=== PATIENT | female | born 1985 | race Asian ===

== ENCOUNTER 2021-01-20 20:55 | Emergency (ER) | payer OTHER ==
[~2021-01-20] VITALS: Ht 160 cm; Wt 65.2 kg
[2021-01-20 22:48] LABS: BASO # 0.1 10^3/uL (0.0-0.2); BASO % 0.8 % (0.0-1.0); EOS # 0.2 10^3/uL (0.0-0.5); EOS % 2.7 % (0.0-3.0); HEMATOCRIT 39.1 % (36.0-47.0); HEMOGLOBIN 12.7 g/dl (12.0-15.5); LYMPH # 2.4 10^3/uL (1.5-5.0); LYMPH % 33.4 % (24.0-44.0); MEAN CORPUSCULAR HGB CONC 32.5 g/dl (32.0-36.5); MEAN CORPUSCULAR VOLUME 86.1 fl (80.0-96.0); MONO # 0.6 10^3/uL (0.0-0.8); MONO % 7.9 % (2.0-8.0); NEUTROPHILS % 55.1 % (36.0-66.0); PLATELET COUNT, AUTOMATED 298 10^3/uL (150-450); RED BLOOD COUNT 4.54 10^6/uL (4.00-5.40); WHITE BLOOD COUNT 7.3 10^3/uL (4.0-10.0)
[2021-01-20 23:08] LABS: ERYTHROCYTE SEDIMENTATION RATE 13 mm/hr (0-20)
[2021-01-20 23:27] LABS: BLOOD UREA NITROGEN 14 MG/DL (7-18); CALCIUM LEVEL 8.5 MG/DL (8.5-10.1); CARBON DIOXIDE LEVEL 27 MEQ/L (21-32); CHLORIDE LEVEL 107 MEQ/L (98-107); CREATININE FOR GFR 0.69 MG/DL (0.55-1.30); GLOMERULAR FILTRATION RATE > 60.0 (>60); GLUCOSE, FASTING 104 MG/DL (70-100); POTASSIUM SERUM 4.3 MEQ/L (3.5-5.1); RHEUMATOID FACTOR QUANT < 10.0 IU/ML (<15.0); SODIUM LEVEL 137 MEQ/L (136-145)
[2021-01-21] VITALS: BP 118/65
[2021-01-23 23:08] LABS: ANTI DOUBLE STRAND-DNA AB <1 IU/mL (0-9); ANTINUCLEAR ANTIBODIES DIRECT Positive (Negative); CYCLIC CITRULLINATED PEPTIDE 7 units (0-19); Lyme Disease IgG/IgM Antibodie <0.91 ISR (0.00-0.90); Lyme Disease IgM Ab Quantitati <0.80 index (0.00-0.79); RNP ANTIBODIES <0.2 AI (0.0-0.9); SJOGREN'S ANTI SS-A 2.8 AI (0.0-0.9); SJOGREN'S ANTI SS-B <0.2 AI (0.0-0.9); SMITH ANTIBODIES <0.2 AI (0.0-0.9)
== END 2021-01-21 00:01 | disposition home or self-care (01) ==
LOC: M ED 20:55
DX: M25.50 Pain in unspecified joint (principal)

== ENCOUNTER → 2021-09-07 | Outpatient (CLI) | payer OTHER ==
[~2021-09-07] VITALS: Ht 162.6 cm; Wt 77.1 kg
[~2021-09-07] MED LIST: HOME MED LIST COMPLETE! XX SCH; PREN1CHW6 PO
[2021-09-07 00:21] VITALS: BP 125/72
== END ==
LOC: M LDO 00:02
PROVIDERS: ATTEND Obstetrics & Gynecology
DX: O36.8130 Decreased fetal movements, third trimester, not applicable or unspecified (principal); Z3A.35 35 weeks gestation of pregnancy
CPT/HCPCS: 59025; 76815; G0463

== ENCOUNTER 2021-09-13 01:20 | Inpatient (IN) | payer OTHER ==
[2021-09-13] VITALS (51 sets, daily range): BP systolic 95–143; BP diastolic 52–94
[~2021-09-13] VITALS: Ht 162.6 cm; Wt 78.2 kg
[~2021-09-13 01:20] MED LIST changes: -HOME MED LIST COMPLETE! XX SCH
[2021-09-13] MEDS ORDERED: LACTATED RINGER'S 1000 ML IV STA (02:12)
[2021-09-13] MEDS ORDERED: PENICILLIN G POTASSIUM IV 5 MU in D5W MINI-BAG PLUS 100 ML IV STA (02:12)
[2021-09-13] MEDS ORDERED: OXYTOCIN INJ 10 UNITS/ML VIAL (J2590) IM PRN (02:15)
[2021-09-13] MEDS ORDERED: TRANEXAMIC ACID INJection 1,000 MG in NS 100 ML IV PRN (02:15)
[2021-09-13] MEDS ORDERED: OXYTOCIN DRIP 30 UNITS in IV 1 EA IV PRN ×6 (02:15)
[2021-09-13] MEDS ORDERED: METHYLERGONOVINE MALEATE 0.2 MG/ML VIAL (J2210) IM PRN (02:15)
[2021-09-13] MEDS ORDERED: CARBOPROST TROMETHAMINE 250 MCG/ML AMP IM PRN (02:15)
[2021-09-13] MEDS ORDERED: LR 1,000 ML IV SCH (02:15)
[2021-09-13] MEDS ORDERED: OXYTOCIN INJ 10 UNITS/ML VIAL (J2590) IV PRN (02:15)
[2021-09-13] MEDS ORDERED: OXYTOCIN DRIP 30 UNITS in IV 1 EA IV SCH (02:15)
[2021-09-13] MEDS ORDERED: LIDOCAINE 1% MDV 20ML VIAL INFIL PRN (02:15)
[2021-09-13 02:51] LABS: HEMATOCRIT 32.4 % (36.0-47.0); HEMOGLOBIN 10.6 g/dl (12.0-15.5); MEAN CORPUSCULAR HEMOGLOBIN 28.6 pg (27.0-33.0); MEAN CORPUSCULAR HGB CONC 32.7 g/dl (32.0-36.5); MEAN CORPUSCULAR VOLUME 87.6 fl (80.0-96.0); PLATELET COUNT, AUTOMATED 239 10^3/uL (150-450); WHITE BLOOD COUNT 6.9 10^3/uL (4.0-10.0)
[2021-09-13] MEDS: BETAMETHASONE SOLUSPAN 6MG/ML 5ML VIAL (J0702 PER 3MG) IM SCH (02:51)
[2021-09-13] MEDS: LR 1,000 ML IV SCH ×4 (02:52→23:31)
[2021-09-13] MEDS ORDERED: ONDANSETRON 4MG/2ML VIAL IV PRN (04:24)
[2021-09-13] MEDS ORDERED: EPIDURAL COMMENT XX SCH (04:24)
[2021-09-13] MEDS ORDERED: EPIDURAL/PCA KEYS XX PRN (04:24)
[2021-09-13] MEDS ORDERED: diphenhydrAMINE 50MG/ML VIAL (J1200) IV PRN (04:24)
[2021-09-13] MEDS ORDERED: NALOXONE INJ 0.4MG/1ML VIAL (J2310 PER 1MG) IV PRN (04:24)
[2021-09-13] MEDS ORDERED: ePHEDrine SULFATE 25 MG/5 ML(5MG/ML) SYRINGE IV PRN (04:24)
[2021-09-13] MEDS ORDERED: REFRIGERATOR IV KEYS XX PRN (04:24)
[2021-09-13] MEDS ORDERED: LACTATED RINGER'S 1000 ML IV PRN (04:24)
[2021-09-13] MEDS ORDERED: FENTANYL 2MCG/ML ROPIVACAINE 0.2% IN 0.9% NACL 100ML IVBAG As Ordered ONE (04:26)
[2021-09-13 07:03] LABS: ALT/SGPT 19 U/L (12-78); BILIRUBIN,TOTAL 0.6 MG/DL (0.2-1.0); CREATININE FOR GFR 0.54 MG/DL (0.55-1.30); GLOMERULAR FILTRATION RATE > 60.0 (>60); LDH LACTATE DEHYDROGENASE 181 U/L (84-246); URIC ACID 5.5 MG/DL (2.6-6.0)
[2021-09-13] MEDS: FENTANYL/ROPIVACAINE/NACL BAG 100 ML EPIDURAL SCH ×3 (07:12→23:31)
[2021-09-13] MEDS: PENICILLIN G POTASSIUM IV 2.5 MU in IV 1 EA IV SCH ×2 (07:16→12:27)
[2021-09-14] VITALS (15 sets, daily range): BP systolic 95–143; BP diastolic 53–104
[2021-09-14] MEDS: BETAMETHASONE SOLUSPAN 6MG/ML 5ML VIAL (J0702 PER 3MG) IM SCH (02:30)
[2021-09-14 02:58] LABS: CORD GAS ABE V -4.5; CORD GAS HCO3 V 21.3 MEQ/L; CORD GAS O2 SAT V 70.6 %; CORD GAS PCO2 V 41.8 mmHg; CORD GAS PH V 7.325 UNITS; CORD GAS PO2 V 30.6 mmHg; CORD GAS SBC V 20.2 MEQ/L; CORD GAS TCO2 V 22.6 MEQ/L
[2021-09-14 02:59] LABS: CORD GAS ABE A -6.8; CORD GAS HCO3 A 21.7 MEQ/L; CORD GAS O2 SAT A 56.1 %; CORD GAS PCO2 A 55.1 mmHg; CORD GAS PH A 7.214 UNITS; CORD GAS SBC A 18.1 MEQ/L; CORD GAS TCO2 A 23.4 MEQ/L
[2021-09-14] MEDS ORDERED: RHOGAM 300 MCG (1500 IU) INJ (J2790) IM SCH (03:10)
[2021-09-14] MEDS ORDERED: DIBUCAINE 1% OINTMENT 30GM TOP PRN (03:10)
[2021-09-14] MEDS ORDERED: DOCUSATE SODIUM 100MG CAPSULE PO PRN (03:10)
[2021-09-14] MEDS ORDERED: METHYLERGONOVINE MALEATE 0.2 MG TAB PO PRN (03:10)
[2021-09-14] MEDS ORDERED: PROMETHAZINE 25 MG TAB PO PRN (03:10)
[2021-09-14] MEDS ORDERED: LR 1,000 ML IV SCH (03:10)
[2021-09-14] MEDS ORDERED: OXYTOCIN DRIP 30 UNITS in IV 1 EA IV SCH (03:10)
[2021-09-14] MEDS ORDERED: ONDANSETRON 4MG/2ML VIAL IV PRN (03:10)
[2021-09-14] MEDS ORDERED: MEASLES,MUMPS,RUBELLA VACCINE INJ (MMR-II) (90707) SC SCH (03:10)
[2021-09-14] MEDS: IBUPROFEN 800 MG TAB PO SCH ×3 (03:47→19:30)
[2021-09-14] MEDS: ACETAMINOPHEN 500 MG TAB PO SCH ×4 (03:48→21:05)
[2021-09-14] MEDS: PRENATAL VITAMINS CHEWABLE TABLET PO SCH (08:35)
[2021-09-14] MEDS ORDERED: PRENATAL VITAMINS CHEWABLE TABLET PO SCH (09:00)
[2021-09-15] MEDS: ACETAMINOPHEN 500 MG TAB PO SCH ×4 (03:27→21:10)
[2021-09-15] MEDS: IBUPROFEN 800 MG TAB PO SCH ×3 (03:28→19:29)
[2021-09-15 06:00] VITALS: BP 113/56
[2021-09-15] MEDS: PRENATAL VITAMINS CHEWABLE TABLET PO SCH (09:49)
[2021-09-15 09:52] LABS: HEMOGLOBIN 9.9 g/dl (12.0-15.5); MEAN CORPUSCULAR HEMOGLOBIN 28.9 pg (27.0-33.0); MEAN CORPUSCULAR VOLUME 87.5 fl (80.0-96.0); PLATELET COUNT, AUTOMATED 242 10^3/uL (150-450); RED BLOOD COUNT 3.43 10^6/uL (4.00-5.40); WHITE BLOOD COUNT 9.1 10^3/uL (4.0-10.0)
[2021-09-15 18:00] VITALS: BP 112/71
[2021-09-16] MEDS: ACETAMINOPHEN 500 MG TAB PO SCH ×2 (03:32→08:11)
[2021-09-16] MEDS: IBUPROFEN 800 MG TAB PO SCH (03:32)
[2021-09-16 06:00] VITALS: BP 122/62
[2021-09-16] MEDS: PRENATAL VITAMINS CHEWABLE TABLET PO SCH (08:10)
== END 2021-09-16 10:00 | disposition home or self-care (01) | DRG 805 ==
LOC: M LDO 01:20 → M LDI 01:47 → M OBS 09-14 06:54
PROVIDERS: ADMIT Obstetrics & Gynecology; ATTEND Obstetrics & Gynecology
PROC: 10E0XZZ Delivery of Products of Conception, External Approach (ICD-10-PCS; principal; 2021-09-14)
PROC: 0HQ9XZZ Repair Perineum Skin, External Approach (ICD-10-PCS; 2021-09-14)
DX: O42.02 Full-term premature rupture of membranes, onset of labor within 24 hours of rupture (principal); Z37.0 Single live birth; O60.14X0 Preterm labor third trimester with preterm delivery third trimester, not applicable or unspecified; K83.1 Obstruction of bile duct; O26.62 Liver and biliary tract disorders in childbirth; Z3A.36 36 weeks gestation of pregnancy; O09.523 Supervision of elderly multigravida, third trimester; O70.0 First degree perineal laceration during delivery